=== PATIENT | male | born 1970 | race Caucasian/White ===

== ENCOUNTER 2017-09-22 17:52 | Inpatient (IN) | payer MEDICAID, OTHER ==
[~2017-09-22] VITALS: Ht 172.7 cm; Wt 68.0 kg
[~2017-09-22 17:52] MED LIST: DIVA500T35 PO
[2017-09-22 19:08] LABS: BASOPHILS % (AUTO) 0.7 % (0.0-2.0); EOSINOPHILS % (AUTO) 1.4 % (1.0-6.0); HEMATOCRIT 38.6 % (41-53); HEMOGLOBIN 13.6 g/dL (13.5-17.5); LYMPHOCYTES # (AUTO) 2.6 K/uL (1.0-4.8); LYMPHOCYTES % (AUTO) 19.1 % (22.0-44.0); MEAN CORPUSCULAR HEMOGLOBIN 32.1 pg (26.0-34.0); MEAN CORPUSCULAR HGB CONC 35.2 G/dL (31.0-37.0); MEAN CORPUSCULAR VOLUME 91 fL (80-100); MONOCYTES # (AUTO) 1.8 K/uL (0.1-1.0); MONOCYTES % (AUTO) 13.2 % (2.0-9.0); NEUTROPHILS # (AUTO) 8.9 K/uL (1.8-7.7); NEUTROPHILS % (AUTO) 65.6 % (40.0-70.0); PLATELET COUNT (AUTO) 141 K/uL (150-450); RED BLOOD CELL COUNT(AUTO) 4.23 MIL/uL (4.50-5.90); RED CELL DISTRIBUTION WIDTH 14.1 % (11.5-14.5)
[2017-09-22 19:11] LABS: ANION GAP 12 mmol/L (8-16); CALCIUM, TOTAL 9.3 mg/dL (8.8-10.5); CARBON DIOXIDE 26 mmol/L (22-29); CHLORIDE 102 mmol/L (98-107); CREATININE 1.34 mg/dL (0.60-1.30); GLOMERULAR FILTR. RATE CALC 57 mL/min (>60); GLUCOSE,RANDOM 86 mg/dL (70-110); POTASSIUM 4.8 mmol/L (3.5-5.1); SODIUM SERUM 140 mmol/L (136-145); UREA NITROGEN, BLOOD 27 mg/dL (7-18)
[2017-09-22 19:17] LABS: ALANINE AMINOTRANSFERASE 25 U/L (12-78); ALBUMIN 4.4 g/dL (3.4-5.0); ALKALINE PHOSPHATASE 56 U/L (46-116); ASPARTATE AMINOTRANSFERASE 34 U/L (15-37); BILIRUBIN,TOTAL 0.6 mg/dL (0.1-1.0)
[2017-09-22 19:41] LABS: PLATELET MORPHOLOGY COMMENT GIANT PLTS PRESENT
[2017-09-22 20:03] LABS: AMPHET/METH SCREEN,URINE NEGATIVE (NEGATIVE); BARBITURATE SCREEN, URINE NEGATIVE (NEGATIVE); BENZODIAZEPINES SCREEN,URINE NEGATIVE (NEGATIVE); CANNABINOID SCREEN,URINE POSITIVE (NEGATIVE); COCAINE SCREEN,URINE NEGATIVE (NEGATIVE); METHADONE SCREEN, URINE NEGATIVE (NEGATIVE); OPIATE SCREEN,URINE POSITIVE (NEGATIVE)
[2017-09-22 20:04] LABS: PHENCYCLIDINE SCREEN,URINE NEGATIVE (NEGATIVE)
[2017-09-22 20:30] LABS: VALPROIC ACID 51 mcg/mL (50-100)
[2017-09-22 20:45] LABS: APPEARANCE,URINE CLEAR (CLEAR); BILIRUBIN,URINE NEGATIVE (NEGATIVE); GLUCOSE, URINE (UA) NEGATIVE (NEGATIVE); KETONES,URINE TRACE mg/dL (NEGATIVE); LEUKOCYTE ESTERASE ,URINE NEGATIVE (NEGATIVE); NITRATE,URINE NEGATIVE (NEGATIVE); OCCULT BLOOD,URINE TRACE (NEGATIVE); PROTEIN,URINE POS 1+ (NEGATIVE); UROBILINOGEN,URINE 0.2 mg/dL (<=1.0)
[2017-09-22 20:53] LABS: BACTERIA,URINE Rare /HPF (None Seen); RBC,URINE 0-2 /HPF (0-2); SQUAMOUS EPITHELIAL CELL,UR Few /LPF (None Seen); WBC,URINE 0-2 /HPF (0-5)
[2017-09-23] MEDS: ZOLPIDEM TARTRATE 10 MG TABLET PO PRN (00:01)
[2017-09-23 08:05] LABS: CHOL/HDL RATIO 4.5 (4.2-7.3); FREE T4 (FREE THYROXINE) 0.88 ng/dL (0.76-1.46); THYROID STIMULATING HORMONE 1.59 uIU/mL (0.36-3.74)
[2017-09-23] MEDS: DIVALPROEX SODIUM 500 MG DR TABLET PO SCH ×5 (09:00→21:23)
[2017-09-23] MEDS ORDERED: HALOPERIDOL LACTATE 5 MG/ML VIAL ONE (12:52)
[2017-09-23] MEDS ORDERED: LORazepam 2 MG/ML VIAL ONE (12:52)
[2017-09-23] MEDS ORDERED: HALOPERIDOL LACTATE 5 MG/ML VIAL IM ONE (12:53)
[2017-09-23] MEDS ORDERED: LORazepam 2 MG/ML VIAL IM ONE (13:00)
[2017-09-24] MEDS ORDERED: LevETIRAcetam 500 MG TABLET PO ONE (08:30)
[2017-09-24] MEDS: DIVALPROEX SODIUM 500 MG DR TABLET PO SCH ×3 (08:39→16:28)
[2017-09-24] MEDS: LORazepam 2 MG TABLET PO PRN (08:39)
[2017-09-24] MEDS: HALOPERIDOL 5 MG TABLET PO PRN (09:17)
[2017-09-24 09:45] VITALS: BP 128/78
[2017-09-24] MEDS: LevETIRAcetam 500 MG TABLET PO SCH (16:28)
[2017-09-24 17:54] VITALS: BP 122/75
[2017-09-24] MEDS: ZOLPIDEM TARTRATE 10 MG TABLET PO PRN (20:20)
[2017-09-25] MEDS: LevETIRAcetam 500 MG TABLET PO SCH ×2 (08:23→17:05)
[2017-09-25] MEDS: LORazepam 2 MG TABLET PO PRN ×2 (08:23→13:06)
[2017-09-25] MEDS: DIVALPROEX SODIUM 500 MG DR TABLET PO SCH ×3 (08:23→17:05)
[2017-09-25] MEDS: HALOPERIDOL 5 MG TABLET PO PRN (08:43)
[2017-09-25 16:00] VITALS: BP 132/70
[2017-09-25] MEDS: MIRTAZAPINE 15 MG TABLET PO SCH (21:59)
[2017-09-26 01:24] LABS: APPEARANCE,URINE CLEAR (CLEAR); BILIRUBIN,URINE NEGATIVE (NEGATIVE); GLUCOSE, URINE (UA) NEGATIVE (NEGATIVE); OCCULT BLOOD,URINE NEGATIVE (NEGATIVE); PROTEIN,URINE NEGATIVE (NEGATIVE)
[2017-09-26 01:25] LABS: KETONES,URINE TRACE mg/dL (NEGATIVE); LEUKOCYTE ESTERASE ,URINE NEGATIVE (NEGATIVE); NITRATE,URINE NEGATIVE (NEGATIVE); UROBILINOGEN,URINE 0.2 mg/dL (<=1.0)
[2017-09-26 07:28] LABS: BASOPHILS % (AUTO) 1.2 % (0.0-2.0); EOSINOPHILS % (AUTO) 5.4 % (1.0-6.0); HEMATOCRIT 36.8 % (41-53); HEMOGLOBIN 12.8 g/dL (13.5-17.5); LYMPHOCYTES # (AUTO) 3.4 K/uL (1.0-4.8); LYMPHOCYTES % (AUTO) 50.3 % (22.0-44.0); MEAN CORPUSCULAR HEMOGLOBIN 31.9 pg (26.0-34.0); MEAN CORPUSCULAR HGB CONC 34.9 G/dL (31.0-37.0); MEAN CORPUSCULAR VOLUME 92 fL (80-100); MONOCYTES # (AUTO) 0.7 K/uL (0.1-1.0); MONOCYTES % (AUTO) 9.9 % (2.0-9.0); NEUTROPHILS # (AUTO) 2.2 K/uL (1.8-7.7); NEUTROPHILS % (AUTO) 33.2 % (40.0-70.0); PLATELET COUNT (AUTO) 158 K/uL (150-450); RED BLOOD CELL COUNT(AUTO) 4.02 MIL/uL (4.50-5.90)
[2017-09-26 07:30] LABS: PLATELET MORPHOLOGY COMMENT GIANT PLTS PRESENT
[2017-09-26 07:44] LABS: ALANINE AMINOTRANSFERASE 29 U/L (12-78); ALBUMIN 3.5 g/dL (3.4-5.0); ALKALINE PHOSPHATASE 51 U/L (46-116); ANION GAP 4 mmol/L (8-16); ASPARTATE AMINOTRANSFERASE 28 U/L (15-37); BILIRUBIN,TOTAL 0.5 mg/dL (0.1-1.0); CALCIUM, TOTAL 8.6 mg/dL (8.8-10.5); CARBON DIOXIDE 32 mmol/L (22-29); CHLORIDE 104 mmol/L (98-107); CREATININE 1.17 mg/dL (0.60-1.30); GLOMERULAR FILTR. RATE CALC > 60 mL/min (>60); GLUCOSE,RANDOM 79 mg/dL (70-110); POTASSIUM 4.1 mmol/L (3.5-5.1); SODIUM SERUM 140 mmol/L (136-145); TOTAL PROTEIN, SERUM 6.9 g/dL (6.4-8.2); UREA NITROGEN, BLOOD 20 mg/dL (7-18)
[2017-09-26 08:20] VITALS: BP 119/73
[2017-09-26] MEDS: HALOPERIDOL 5 MG TABLET PO PRN ×2 (08:31→12:49)
[2017-09-26] MEDS: LORazepam 2 MG TABLET PO PRN ×2 (08:31→12:49)
[2017-09-26] MEDS: DIVALPROEX SODIUM 500 MG DR TABLET PO SCH ×3 (08:31→16:19)
[2017-09-26] MEDS: LevETIRAcetam 500 MG TABLET PO SCH ×2 (08:31→16:19)
[2017-09-26] MEDS ORDERED: ACETAMINOPHEN 325 MG TABLET PO PRN (09:00)
[2017-09-26 16:08] VITALS: BP 139/68
[2017-09-26] MEDS: MIRTAZAPINE 15 MG TABLET PO SCH (20:47)
[2017-09-27] MEDS: LevETIRAcetam 500 MG TABLET PO SCH ×2 (08:40→16:39)
[2017-09-27] MEDS: HALOPERIDOL 5 MG TABLET PO PRN (08:40)
[2017-09-27] MEDS: LORazepam 2 MG TABLET PO PRN (08:40)
[2017-09-27] MEDS: DIVALPROEX SODIUM 500 MG DR TABLET PO SCH ×3 (08:40→16:39)
[2017-09-27 16:01] VITALS: BP 128/78
[2017-09-27] MEDS: MIRTAZAPINE 15 MG TABLET PO SCH (20:27)
[2017-09-28] MEDS: DIVALPROEX SODIUM 500 MG DR TABLET PO SCH ×3 (09:00→17:57)
[2017-09-28] MEDS: LevETIRAcetam 500 MG TABLET PO SCH ×2 (09:00→17:57)
[2017-09-28] MEDS: HALOPERIDOL 5 MG TABLET PO PRN (11:25)
[2017-09-28] MEDS: LORazepam 2 MG TABLET PO PRN (11:25)
[2017-09-28 16:00] VITALS: BP 137/79
[2017-09-28] MEDS: MIRTAZAPINE 15 MG TABLET PO SCH (22:13)
[2017-09-29] MEDS: DIVALPROEX SODIUM 500 MG DR TABLET PO SCH ×3 (08:16→18:01)
[2017-09-29] MEDS: LevETIRAcetam 500 MG TABLET PO SCH ×2 (08:17→18:01)
[2017-09-29] MEDS: ARIPiprazole 10 MG TABLET PO SCH (08:17)
[2017-09-29] MEDS: LORazepam 2 MG TABLET PO PRN (08:17)
[2017-09-29] MEDS: HALOPERIDOL 5 MG TABLET PO PRN (08:17)
[2017-09-29] MEDS: MIRTAZAPINE 15 MG TABLET PO SCH (22:00)
[2017-09-30] MEDS: ARIPiprazole 10 MG TABLET PO SCH (08:00)
[2017-09-30] MEDS: LevETIRAcetam 500 MG TABLET PO SCH ×2 (08:00→16:52)
[2017-09-30] MEDS: DIVALPROEX SODIUM 500 MG DR TABLET PO SCH ×3 (08:00→16:52)
[2017-09-30 16:07] VITALS: BP 114/73
[2017-09-30] MEDS: MIRTAZAPINE 15 MG TABLET PO SCH (22:06)
[2017-10-01] MEDS: ZOLPIDEM TARTRATE 10 MG TABLET PO PRN (02:00)
[2017-10-01] MEDS: ARIPiprazole 10 MG TABLET PO SCH (08:28)
[2017-10-01] MEDS: LevETIRAcetam 500 MG TABLET PO SCH ×2 (08:28→16:02)
[2017-10-01] MEDS: DIVALPROEX SODIUM 500 MG DR TABLET PO SCH ×3 (08:28→16:02)
[2017-10-01 09:20] VITALS: BP 133/93
[2017-10-01 16:50] VITALS: BP 121/85
[2017-10-01] MEDS: MIRTAZAPINE 15 MG TABLET PO SCH (20:49)
[2017-10-01 22:45] VITALS: BP 166/116
[2017-10-01 22:57] LABS: GLUCOMETER DEV NAME(LOC) 3EX 1; GLUCOSE,POINT OF CARE 108 MG/DL (70-110)
[2017-10-01 23:00] VITALS: BP 125/69
[2017-10-01 23:15] VITALS: BP 166/116
[2017-10-01 23:30] VITALS: BP 124/73
[2017-10-02 00:04] LABS: EOSINOPHILS % (AUTO) 8.8 % (1.0-6.0); HEMATOCRIT 40.5 % (41-53); HEMOGLOBIN 13.8 g/dL (13.5-17.5); LYMPHOCYTES # (AUTO) 4.7 K/uL (1.0-4.8); LYMPHOCYTES % (AUTO) 50.6 % (22.0-44.0); MEAN CORPUSCULAR HEMOGLOBIN 31.2 pg (26.0-34.0); MEAN CORPUSCULAR VOLUME 92 fL (80-100); MONOCYTES # (AUTO) 0.8 K/uL (0.1-1.0); MONOCYTES % (AUTO) 8.3 % (2.0-9.0); NEUTROPHILS # (AUTO) 2.9 K/uL (1.8-7.7); NEUTROPHILS % (AUTO) 31.3 % (40.0-70.0); PLATELET COUNT (AUTO) 168 K/uL (150-450); RED BLOOD CELL COUNT(AUTO) 4.43 MIL/uL (4.50-5.90)
[2017-10-02 00:05] VITALS: BP 128/83
[2017-10-02 00:14] LABS: ANION GAP 4 mmol/L (8-16); CALCIUM, TOTAL 9.2 mg/dL (8.8-10.5); CARBON DIOXIDE 35 mmol/L (22-29); CHLORIDE 99 mmol/L (98-107); CREATININE 1.07 mg/dL (0.60-1.30); GLOMERULAR FILTR. RATE CALC > 60 mL/min (>60); GLUCOSE,RANDOM 90 mg/dL (70-110); SODIUM SERUM 138 mmol/L (136-145); UREA NITROGEN, BLOOD 20 mg/dL (7-18)
[2017-10-02 00:20] LABS: ALANINE AMINOTRANSFERASE 23 U/L (12-78); ALBUMIN 3.9 g/dL (3.4-5.0); ALKALINE PHOSPHATASE 45 U/L (46-116); ASPARTATE AMINOTRANSFERASE 19 U/L (15-37); BILIRUBIN,TOTAL 0.3 mg/dL (0.1-1.0); TOTAL PROTEIN, SERUM 7.6 g/dL (6.4-8.2); VALPROIC ACID 101 mcg/mL (50-100)
[2017-10-02 00:30] VITALS: BP 120/80
[2017-10-02 01:32] VITALS: BP 117/79
[2017-10-02 02:33] VITALS: BP 131/83
[2017-10-02 08:25] VITALS: BP 139/93
[2017-10-02] MEDS: ARIPiprazole 10 MG TABLET PO SCH (08:28)
[2017-10-02] MEDS: DIVALPROEX SODIUM 500 MG DR TABLET PO SCH ×3 (08:28→15:59)
[2017-10-02] MEDS: LevETIRAcetam 500 MG TABLET PO SCH ×2 (08:28→15:59)
[2017-10-02] MEDS ORDERED: LevETIRAcetam 500 MG TABLET PO ONE (09:00)
[2017-10-02 11:37] LABS: GLUCOMETER DEV NAME(LOC) 3EX 1; GLUCOSE,POINT OF CARE 88 MG/DL (70-110)
[2017-10-02 17:07] VITALS: BP 133/66
[2017-10-02] MEDS: MIRTAZAPINE 15 MG TABLET PO SCH (19:52)
[2017-10-03 04:26] VITALS: BP 146/70
[2017-10-03 08:26] VITALS: BP 119/60
[2017-10-03] MEDS: ARIPiprazole 10 MG TABLET PO SCH (09:26)
[2017-10-03] MEDS: DIVALPROEX SODIUM 500 MG DR TABLET PO SCH ×3 (09:26→17:27)
[2017-10-03] MEDS: LevETIRAcetam 500 MG TABLET PO SCH ×2 (09:26→17:27)
[2017-10-03 17:03] VITALS: BP 107/78
[2017-10-03] MEDS: MIRTAZAPINE 30 MG TABLET PO SCH (21:09)
[2017-10-04 08:10] VITALS: BP 140/77
[2017-10-04] MEDS: ARIPiprazole 15 MG TABLET PO SCH (09:02)
[2017-10-04] MEDS: DIVALPROEX SODIUM 500 MG DR TABLET PO SCH ×3 (09:03→16:36)
[2017-10-04] MEDS: LevETIRAcetam 500 MG TABLET PO SCH ×2 (09:03→16:36)
[2017-10-04 11:52] LABS: GLUCOMETER DEV NAME(LOC) 3EX 1; GLUCOSE,POINT OF CARE 152 MG/DL (70-110)
[2017-10-04 17:31] VITALS: BP 128/74
[2017-10-04] MEDS: HALOPERIDOL 5 MG TABLET PO PRN (20:16)
[2017-10-04] MEDS: MIRTAZAPINE 30 MG TABLET PO SCH (20:16)
[2017-10-05] MEDS: ARIPiprazole 15 MG TABLET PO SCH (08:22)
[2017-10-05] MEDS: DIVALPROEX SODIUM 500 MG DR TABLET PO SCH ×3 (08:22→15:58)
[2017-10-05] MEDS: LevETIRAcetam 500 MG TABLET PO SCH ×2 (08:23→15:58)
[2017-10-05 09:00] VITALS: BP 135/107
[2017-10-05 10:00] VITALS: BP 141/81
[2017-10-05] MEDS: HALOPERIDOL 5 MG TABLET PO PRN ×3 (10:15→23:39)
[2017-10-05 16:33] VITALS: BP 127/72
[2017-10-05] MEDS: MIRTAZAPINE 30 MG TABLET PO SCH (21:04)
[2017-10-06] VITALS: BP 125/74
[2017-10-06] MEDS: ARIPiprazole 10 MG TABLET PO SCH (07:57)
[2017-10-06] MEDS: HALOPERIDOL 5 MG TABLET PO PRN (07:57)
[2017-10-06] MEDS: DIVALPROEX SODIUM 500 MG DR TABLET PO SCH ×3 (07:57→17:21)
[2017-10-06] MEDS: LevETIRAcetam 500 MG TABLET PO SCH ×2 (07:57→17:21)
[2017-10-06 08:00] VITALS: BP 112/69
[2017-10-06 16:03] VITALS: BP 124/76
[2017-10-06] MEDS ORDERED: LORazepam 2 MG/ML VIAL IM ONE (18:20)
[2017-10-06 18:23] LABS: GLUCOMETER DEV NAME(LOC) 3EX 1; GLUCOSE,POINT OF CARE 83 MG/DL (70-110)
[2017-10-06] MEDS: MIRTAZAPINE 30 MG TABLET PO SCH (20:36)
[2017-10-07 06:53] LABS: BASOPHILS % (AUTO) 0.8 % (0.0-2.0); EOSINOPHILS % (AUTO) 6.9 % (1.0-6.0); HEMATOCRIT 38.9 % (41-53); HEMOGLOBIN 13.5 g/dL (13.5-17.5); LYMPHOCYTES # (AUTO) 3.4 K/uL (1.0-4.8); MEAN CORPUSCULAR HEMOGLOBIN 31.8 pg (26.0-34.0); MEAN CORPUSCULAR HGB CONC 34.6 G/dL (31.0-37.0); MEAN CORPUSCULAR VOLUME 92 fL (80-100); MONOCYTES # (AUTO) 0.7 K/uL (0.1-1.0); MONOCYTES % (AUTO) 9.3 % (2.0-9.0); NEUTROPHILS # (AUTO) 2.4 K/uL (1.8-7.7); PLATELET COUNT (AUTO) 124 K/uL (150-450); RED BLOOD CELL COUNT(AUTO) 4.24 MIL/uL (4.50-5.90); RED CELL DISTRIBUTION WIDTH 13.9 % (11.5-14.5)
[2017-10-07 07:24] LABS: ALANINE AMINOTRANSFERASE 20 U/L (12-78); ALBUMIN 3.5 g/dL (3.4-5.0); ALKALINE PHOSPHATASE 41 U/L (46-116); ANION GAP 3 mmol/L (8-16); ASPARTATE AMINOTRANSFERASE 18 U/L (15-37); BILIRUBIN,TOTAL 0.3 mg/dL (0.1-1.0); CALCIUM, TOTAL 8.7 mg/dL (8.8-10.5); CARBON DIOXIDE 32 mmol/L (22-29); CHLORIDE 104 mmol/L (98-107); CREATININE 1.02 mg/dL (0.60-1.30); GLOMERULAR FILTR. RATE CALC > 60 mL/min (>60); GLUCOSE,RANDOM 77 mg/dL (70-110); POTASSIUM 4.6 mmol/L (3.5-5.1); SODIUM SERUM 139 mmol/L (136-145); TOTAL PROTEIN, SERUM 6.8 g/dL (6.4-8.2); UREA NITROGEN, BLOOD 16 mg/dL (7-18)
[2017-10-07 08:15] LABS: ERYTHROCYTE SEDIMENTATION RATE 3 MM/HR (0-15)
[2017-10-07 08:35] VITALS: BP 130/72
[2017-10-07] MEDS: LevETIRAcetam 500 MG TABLET PO SCH ×2 (08:39→16:09)
[2017-10-07] MEDS: ARIPiprazole 10 MG TABLET PO SCH (08:39)
[2017-10-07] MEDS: DIVALPROEX SODIUM 500 MG DR TABLET PO SCH ×3 (08:39→16:09)
[2017-10-07 16:07] VITALS: BP 135/78
[2017-10-07] MEDS: MIRTAZAPINE 30 MG TABLET PO SCH (20:40)
[2017-10-08] MEDS: LevETIRAcetam 500 MG TABLET PO SCH ×2 (08:12→16:28)
[2017-10-08] MEDS: DIVALPROEX SODIUM 500 MG DR TABLET PO SCH ×3 (08:12→16:28)
[2017-10-08] MEDS: ARIPiprazole 10 MG TABLET PO SCH (08:13)
[2017-10-08 08:28] VITALS: BP 141/86
[2017-10-08] MEDS: HALOPERIDOL 5 MG TABLET PO PRN (09:03)
[2017-10-08 16:46] VITALS: BP 131/62
[2017-10-08] MEDS: MIRTAZAPINE 30 MG TABLET PO SCH (20:11)
[2017-10-09] MEDS: HALOPERIDOL 5 MG TABLET PO PRN (00:28)
[2017-10-09 01:04] VITALS: BP 120/79
[2017-10-09 08:00] VITALS: BP 117/83
[2017-10-09] MEDS: ARIPiprazole 10 MG TABLET PO SCH (08:55)
[2017-10-09] MEDS: DIVALPROEX SODIUM 500 MG DR TABLET PO SCH ×3 (08:55→15:55)
[2017-10-09] MEDS: LevETIRAcetam 500 MG TABLET PO SCH ×2 (08:55→15:55)
[2017-10-09 15:10] VITALS: BP 137/92
[2017-10-09 15:15] VITALS: BP 137/92
[2017-10-09] MEDS: IBUPROFEN 600 MG TABLET PO PRN (15:55)
[2017-10-09 16:02] VITALS: BP 124/90
[2017-10-09] MEDS: MIRTAZAPINE 30 MG TABLET PO SCH (21:00)
[2017-10-10 00:15] VITALS: BP 128/97
[2017-10-10 08:10] VITALS: BP 131/99
[2017-10-10] MEDS: DIVALPROEX SODIUM 500 MG DR TABLET PO SCH ×3 (08:44→15:55)
[2017-10-10] MEDS: LORATADINE 10 MG TABLET PO SCH (08:44)
[2017-10-10] MEDS: ARIPiprazole 10 MG TABLET PO SCH (08:44)
[2017-10-10] MEDS: LevETIRAcetam 500 MG TABLET PO SCH ×2 (08:45→15:55)
[2017-10-10] MEDS: IBUPROFEN 600 MG TABLET PO PRN (16:13)
[2017-10-10 16:14] VITALS: BP 119/83
[2017-10-10] MEDS: MIRTAZAPINE 30 MG TABLET PO SCH (19:58)
[2017-10-11] VITALS: BP 144/99
[2017-10-11 07:21] LABS: ALANINE AMINOTRANSFERASE 22 U/L (12-78); ALBUMIN 3.6 g/dL (3.4-5.0); ALKALINE PHOSPHATASE 54 U/L (46-116); ANION GAP 3 mmol/L (8-16); ASPARTATE AMINOTRANSFERASE 19 U/L (15-37); BILIRUBIN,TOTAL 0.2 mg/dL (0.1-1.0); CALCIUM, TOTAL 8.9 mg/dL (8.8-10.5); CARBON DIOXIDE 33 mmol/L (22-29); CHLORIDE 103 mmol/L (98-107); CREATININE 1.04 mg/dL (0.60-1.30); GLOMERULAR FILTR. RATE CALC > 60 mL/min (>60); GLUCOSE,RANDOM 74 mg/dL (70-110); POTASSIUM 4.7 mmol/L (3.5-5.1); SODIUM SERUM 139 mmol/L (136-145); TOTAL PROTEIN, SERUM 7.3 g/dL (6.4-8.2); UREA NITROGEN, BLOOD 21 mg/dL (7-18)
[2017-10-11 08:47] LABS: APPEARANCE,URINE CLEAR (CLEAR); BILIRUBIN,URINE NEGATIVE (NEGATIVE); GLUCOSE, URINE (UA) NEGATIVE (NEGATIVE); KETONES,URINE NEGATIVE (NEGATIVE); LEUKOCYTE ESTERASE ,URINE NEGATIVE (NEGATIVE); NITRATE,URINE NEGATIVE (NEGATIVE); OCCULT BLOOD,URINE NEGATIVE (NEGATIVE); PROTEIN,URINE NEGATIVE (NEGATIVE); UROBILINOGEN,URINE 0.2 mg/dL (<=1.0)
[2017-10-11] MEDS: LevETIRAcetam 500 MG TABLET PO SCH (10:07)
[2017-10-11] MEDS: ARIPiprazole 10 MG TABLET PO SCH (10:07)
[2017-10-11] MEDS: DIVALPROEX SODIUM 500 MG DR TABLET PO SCH ×2 (10:07→13:54)
[2017-10-11] MEDS: LORATADINE 10 MG TABLET PO SCH (10:07)
[2017-10-11 10:10] VITALS: BP 201/94
[2017-10-11 10:35] LABS: GLUCOMETER DEV NAME(LOC) 3EI B; GLUCOSE,POINT OF CARE 81 MG/DL (70-110)
[2017-10-11 11:10] VITALS: BP 175/82
== END 2017-10-11 14:15 | disposition short-term general hospital (02) | DRG 751 ==
LOC: EMS 17:53 → 3EC 09-24 07:55 → 3EI 09-30 17:15
PROVIDERS: ADMIT Psychiatry & Neurology Psychiatry; ATTEND Psychiatry & Neurology Psychiatry
DX: F33.2 Major depressive disorder, recurrent severe without psychotic features (principal); R45.851 Suicidal ideations; G40.89 Other seizures; D69.6 Thrombocytopenia, unspecified; D72.829 Elevated white blood cell count, unspecified; I10 Essential (primary) hypertension; S02.2XXA Fracture of nasal bones, initial encounter for closed fracture; G20 Parkinson's disease; F41.9 Anxiety disorder, unspecified; R45.87 Impulsiveness; W19.XXXA Unspecified fall, initial encounter; Z59.0 Homelessness; Z79.899 Other long term (current) drug therapy; Z86.73 Personal history of transient ischemic attack (TIA), and cerebral infarction without residual deficits; Z87.820 Personal history of traumatic brain injury; Y93.89 Activity, other specified; Y92.89 Other specified places as the place of occurrence of the external cause; Y99.8 Other external cause status
CPT/HCPCS: 70450; 70486; 72125; 84439; 84443; 85651; 87081; 93005; 95816; 96372; 99285; G0480; G0482; J1630; J2060

== ENCOUNTER 2017-10-11 14:15 | Inpatient (IN) | payer OTHER ==
[~2017-10-11] VITALS: Ht 177.8 cm; Wt 71.0 kg
[2017-10-11 16:00] VITALS: BP 127/78
[2017-10-11] MEDS ORDERED: ALBUTEROL SULFATE 2.5 MG/0.5 ML NEB SOLUTION NEB PRN (18:15)
[2017-10-11] MEDS ORDERED: BISACODYL 10 MG RECTAL RECTAL SUPPOSITORY PR PRN (18:15)
[2017-10-11] MEDS ORDERED: MAGNESIUM HYDROXIDE SUSPENSION 30 ML UDCUP PO PRN (18:15)
[2017-10-11] MEDS ORDERED: ONDANSETRON HCL 4 MG/2 ML VIAL IVP PRN (18:15)
[2017-10-11] MEDS ORDERED: IPRATROPIUM BROMIDE 0.5 MG/2.5 ML NEB SOLUTION NEB PRN (18:15)
[2017-10-11] MEDS ORDERED: PHENYLEPHRINE HCL 1% 15 ML NASAL SPRAY NASAL PRN (18:15)
[2017-10-11] MEDS ORDERED: HEPARIN SODIUM,PORCINE 5,000 UNITS/ML VIAL SQ SCH (18:15)
[2017-10-11 18:31] VITALS: BP 136/94
[2017-10-11] MEDS ORDERED: LORazepam 2 MG/ML VIAL IVP PRN (19:30)
[2017-10-11 20:35] VITALS: BP 111/77
[2017-10-11] MEDS: MIRTAZAPINE 30 MG TABLET PO SCH (20:41)
[2017-10-11] MEDS: HEPARIN SODIUM,PORCINE 5,000 UNITS/ML VIAL SQ SCH (20:41)
[2017-10-11] MEDS: LevETIRAcetam 500 MG TABLET PO SCH (20:41)
[2017-10-11] MEDS: DIVALPROEX SODIUM 500 MG DR TABLET PO SCH (20:41)
[2017-10-12 00:14] VITALS: BP 148/90
[2017-10-12 04:19] VITALS: BP 148/75
[2017-10-12 07:15] LABS: BASOPHILS % (AUTO) 0.6 % (0.0-2.0); EOSINOPHILS % (AUTO) 4.3 % (1.0-6.0); HEMATOCRIT 39.7 % (41-53); HEMOGLOBIN 14.1 g/dL (13.5-17.5); LYMPHOCYTES # (AUTO) 3.1 K/uL (1.0-4.8); LYMPHOCYTES % (AUTO) 32.4 % (22.0-44.0); MEAN CORPUSCULAR HEMOGLOBIN 32.6 pg (26.0-34.0); MEAN CORPUSCULAR HGB CONC 35.6 G/dL (31.0-37.0); MEAN CORPUSCULAR VOLUME 91 fL (80-100); MONOCYTES # (AUTO) 0.9 K/uL (0.1-1.0); MONOCYTES % (AUTO) 9.1 % (2.0-9.0); NEUTROPHILS # (AUTO) 5.1 K/uL (1.8-7.7); NEUTROPHILS % (AUTO) 53.6 % (40.0-70.0); PLATELET COUNT (AUTO) 137 K/uL (150-450); RED BLOOD CELL COUNT(AUTO) 4.34 MIL/uL (4.50-5.90); RED CELL DISTRIBUTION WIDTH 14.3 % (11.5-14.5)
[2017-10-12 07:48] VITALS: BP 103/67
[2017-10-12 07:52] LABS: HEMOGLOBIN A1C 5.8 % (4.5-6.2)
[2017-10-12 08:04] LABS: ALANINE AMINOTRANSFERASE 21 U/L (12-78); ALBUMIN 3.7 g/dL (3.4-5.0); ALKALINE PHOSPHATASE 50 U/L (46-116); ANION GAP 6 mmol/L (8-16); ASPARTATE AMINOTRANSFERASE 19 U/L (15-37); BILIRUBIN,TOTAL 0.3 mg/dL (0.1-1.0); CARBON DIOXIDE 29 mmol/L (22-29); CHLORIDE 99 mmol/L (98-107); CHOL/HDL RATIO 3.9 (4.2-7.3); CHOLESTEROL 196 mg/dL (131-200); CREATINE KINASE MB 1.8 ng/mL (0-5); CREATINE KINASE, TOTAL 93 U/L (39-308); CREATININE 0.96 mg/dL (0.60-1.30); GLOMERULAR FILTR. RATE CALC > 60 mL/min (>60); GLUCOSE,RANDOM 79 mg/dL (70-110); HDL CHOLESTEROL 50 mg/dL (40-60); LDL CHOL (CALC.) 124 mg/dL (0-130); POTASSIUM 4.1 mmol/L (3.5-5.1); SODIUM SERUM 134 mmol/L (136-145); TOTAL PROTEIN, SERUM 7.6 g/dL (6.4-8.2); TRIGLYCERIDES 110 mg/dL (15-150); UREA NITROGEN, BLOOD 16 mg/dL (7-18); URIC ACID 4.6 mg/dL (2.6-7.2)
[2017-10-12 08:29] LABS: THYROID STIMULATING HORMONE 3.66 uIU/mL (0.36-3.74)
[2017-10-12 10:51] LABS: FOLATE SERUM 8.9 ng/mL (5.4-)
[2017-10-12 11:05] VITALS: BP 125/78
[2017-10-12] MEDS: DIVALPROEX SODIUM 500 MG DR TABLET PO SCH ×2 (11:06→21:06)
[2017-10-12] MEDS: LevETIRAcetam 500 MG TABLET PO SCH ×2 (11:06→21:06)
[2017-10-12] MEDS: PANTOPRAZOLE SODIUM 40 MG DR TABLET PO SCH (11:06)
[2017-10-12] MEDS: LORATADINE 10 MG TABLET PO SCH (11:07)
[2017-10-12] MEDS: HEPARIN SODIUM,PORCINE 5,000 UNITS/ML VIAL SQ SCH ×2 (11:07→21:06)
[2017-10-12] MEDS: ARIPiprazole 10 MG TABLET PO SCH (11:08)
[2017-10-12 15:12] VITALS: BP 138/88
[2017-10-12] MEDS: ASPIRIN 81 MG EC TABLET PO SCH (16:39)
[2017-10-12] MEDS: METOPROLOL TARTRATE 25 MG TABLET PO SCH ×2 (16:39→23:00)
[2017-10-12 19:57] VITALS: BP 95/63
[2017-10-12] MEDS ORDERED: METOPROLOL TARTRATE 25 MG TABLET PO SCH (21:00)
[2017-10-12] MEDS ORDERED: MIRTAZAPINE 30 MG TABLET PO SCH (21:00)
[2017-10-12] MEDS: MIRTAZAPINE 30 MG TABLET PO SCH (21:06)
[2017-10-13 00:05] VITALS: BP 96/65
[2017-10-13 03:21] VITALS: BP 97/68
[2017-10-13 07:55] VITALS: BP 133/75
[2017-10-13 08:10] LABS: BASOPHILS % (AUTO) 0.4 % (0.0-2.0); HEMATOCRIT 40.4 % (41-53); LYMPHOCYTES # (AUTO) 3.7 K/uL (1.0-4.8); LYMPHOCYTES % (AUTO) 35.1 % (22.0-44.0); MEAN CORPUSCULAR HEMOGLOBIN 31.9 pg (26.0-34.0); MEAN CORPUSCULAR HGB CONC 34.7 G/dL (31.0-37.0); MEAN CORPUSCULAR VOLUME 92 fL (80-100); MONOCYTES # (AUTO) 0.9 K/uL (0.1-1.0); MONOCYTES % (AUTO) 8.5 % (2.0-9.0); NEUTROPHILS # (AUTO) 5.2 K/uL (1.8-7.7); PLATELET COUNT (AUTO) 150 K/uL (150-450); RED BLOOD CELL COUNT(AUTO) 4.39 MIL/uL (4.50-5.90); RED CELL DISTRIBUTION WIDTH 14.2 % (11.5-14.5)
[2017-10-13 08:11] LABS: INR 0.9 (0.9-1.1); PROTHROMBIN TIME 9.9 SEC (9.4-11.6)
[2017-10-13] MEDS: LORATADINE 10 MG TABLET PO SCH (08:15)
[2017-10-13] MEDS: DIVALPROEX SODIUM 500 MG DR TABLET PO SCH ×2 (08:15→20:55)
[2017-10-13] MEDS: ASPIRIN 81 MG EC TABLET PO SCH (08:15)
[2017-10-13] MEDS: PANTOPRAZOLE SODIUM 40 MG DR TABLET PO SCH (08:15)
[2017-10-13] MEDS: HEPARIN SODIUM,PORCINE 5,000 UNITS/ML VIAL SQ SCH ×2 (08:15→20:56)
[2017-10-13] MEDS: LevETIRAcetam 500 MG TABLET PO SCH ×2 (08:15→20:55)
[2017-10-13 08:16] LABS: ANION GAP 4 mmol/L (8-16); CALCIUM, TOTAL 8.9 mg/dL (8.8-10.5); CARBON DIOXIDE 32 mmol/L (22-29); CHLORIDE 99 mmol/L (98-107); CREATININE 0.99 mg/dL (0.60-1.30); GLOMERULAR FILTR. RATE CALC > 60 mL/min (>60); GLUCOSE,RANDOM 69 mg/dL (70-110); POTASSIUM 4.2 mmol/L (3.5-5.1); SODIUM SERUM 135 mmol/L (136-145); UREA NITROGEN, BLOOD 21 mg/dL (7-18); VALPROIC ACID 113 mcg/mL (50-100)
[2017-10-13] MEDS: METOPROLOL TARTRATE 25 MG TABLET PO SCH ×3 (08:16→21:57)
[2017-10-13] MEDS ORDERED: ARIPiprazole 10 MG TABLET PO SCH (09:00)
[2017-10-13] MEDS ORDERED: ASPIRIN 81 MG EC TABLET PO SCH (09:00)
[2017-10-13 09:10] LABS: HIV 1-2 SCREEN 4TH GEN W/RFLX Non Reactive (Non Reactive)
[2017-10-13] MEDS: ARIPiprazole 10 MG TABLET PO SCH (10:18)
[2017-10-13 11:56] VITALS: BP 96/75
[2017-10-13 15:20] VITALS: BP 104/57
[2017-10-13 19:57] VITALS: BP 102/72
[2017-10-13] MEDS: MIRTAZAPINE 30 MG TABLET PO SCH (21:56)
[2017-10-14 00:03] VITALS: BP 92/67
[2017-10-14 05:36] VITALS: BP 99/75
[2017-10-14 08:00] VITALS: BP 91/67
[2017-10-14] MEDS: ASPIRIN 81 MG EC TABLET PO SCH (08:06)
[2017-10-14] MEDS: ARIPiprazole 10 MG TABLET PO SCH (08:06)
[2017-10-14] MEDS: LevETIRAcetam 500 MG TABLET PO SCH ×2 (08:06→21:22)
[2017-10-14] MEDS: LORATADINE 10 MG TABLET PO SCH (08:06)
[2017-10-14] MEDS: HEPARIN SODIUM,PORCINE 5,000 UNITS/ML VIAL SQ SCH ×2 (08:07→21:30)
[2017-10-14] MEDS: METOPROLOL TARTRATE 25 MG TABLET PO SCH ×2 (08:07→21:23)
[2017-10-14] MEDS: PANTOPRAZOLE SODIUM 40 MG DR TABLET PO SCH (08:07)
[2017-10-14] MEDS: DIVALPROEX SODIUM 500 MG DR TABLET PO SCH ×2 (08:07→21:22)
[2017-10-14 09:14] LABS: BASOPHILS % (AUTO) 0.7 % (0.0-2.0); EOSINOPHILS % (AUTO) 10.3 % (1.0-6.0); HEMATOCRIT 39.4 % (41-53); HEMOGLOBIN 13.7 g/dL (13.5-17.5); LYMPHOCYTES % (AUTO) 40.8 % (22.0-44.0); MEAN CORPUSCULAR HEMOGLOBIN 31.8 pg (26.0-34.0); MEAN CORPUSCULAR HGB CONC 34.7 G/dL (31.0-37.0); MEAN CORPUSCULAR VOLUME 92 fL (80-100); MONOCYTES # (AUTO) 0.6 K/uL (0.1-1.0); MONOCYTES % (AUTO) 7.4 % (2.0-9.0); NEUTROPHILS % (AUTO) 40.8 % (40.0-70.0); PLATELET COUNT (AUTO) 140 K/uL (150-450); RED CELL DISTRIBUTION WIDTH 14.5 % (11.5-14.5)
[2017-10-14 09:29] LABS: ANION GAP 2 mmol/L (8-16); CALCIUM, TOTAL 8.8 mg/dL (8.8-10.5); CARBON DIOXIDE 33 mmol/L (22-29); CHLORIDE 100 mmol/L (98-107); CREATININE 1.04 mg/dL (0.60-1.30); GLOMERULAR FILTR. RATE CALC > 60 mL/min (>60); GLUCOSE,RANDOM 77 mg/dL (70-110); POTASSIUM 4.6 mmol/L (3.5-5.1); SODIUM SERUM 135 mmol/L (136-145); UREA NITROGEN, BLOOD 20 mg/dL (7-18)
[2017-10-14 11:47] VITALS: BP 101/73
[2017-10-14 15:33] VITALS: BP 103/70
[2017-10-14 20:27] VITALS: BP 152/66
[2017-10-14] MEDS: MIRTAZAPINE 30 MG TABLET PO SCH (21:23)
[2017-10-15 00:07] VITALS: BP 96/70
[2017-10-15 04:27] VITALS: BP 109/70
[2017-10-15 07:21] LABS: BASOPHILS % (AUTO) 0.9 % (0.0-2.0); EOSINOPHILS % (AUTO) 11.8 % (1.0-6.0); HEMATOCRIT 37.3 % (41-53); LYMPHOCYTES # (AUTO) 3.3 K/uL (1.0-4.8); LYMPHOCYTES % (AUTO) 47.4 % (22.0-44.0); MEAN CORPUSCULAR HEMOGLOBIN 31.7 pg (26.0-34.0); MEAN CORPUSCULAR HGB CONC 34.7 G/dL (31.0-37.0); MEAN CORPUSCULAR VOLUME 91 fL (80-100); MONOCYTES # (AUTO) 0.8 K/uL (0.1-1.0); MONOCYTES % (AUTO) 11.4 % (2.0-9.0); NEUTROPHILS % (AUTO) 28.5 % (40.0-70.0); PLATELET COUNT (AUTO) 145 K/uL (150-450); RED BLOOD CELL COUNT(AUTO) 4.09 MIL/uL (4.50-5.90)
[2017-10-15 07:45] VITALS: BP 115/82
[2017-10-15 07:56] LABS: ALANINE AMINOTRANSFERASE 17 U/L (12-78); ALBUMIN 3.5 g/dL (3.4-5.0); ALKALINE PHOSPHATASE 43 U/L (46-116); ANION GAP 7 mmol/L (8-16); ASPARTATE AMINOTRANSFERASE 19 U/L (15-37); BILIRUBIN,TOTAL 0.2 mg/dL (0.1-1.0); CALCIUM, TOTAL 8.8 mg/dL (8.8-10.5); CARBON DIOXIDE 30 mmol/L (22-29); CHLORIDE 99 mmol/L (98-107); CREATININE 0.97 mg/dL (0.60-1.30); GLOMERULAR FILTR. RATE CALC > 60 mL/min (>60); GLUCOSE,RANDOM 77 mg/dL (70-110); POTASSIUM 4.7 mmol/L (3.5-5.1); SODIUM SERUM 136 mmol/L (136-145); TOTAL PROTEIN, SERUM 7.1 g/dL (6.4-8.2); UREA NITROGEN, BLOOD 18 mg/dL (7-18)
[2017-10-15] MEDS: LevETIRAcetam 500 MG TABLET PO SCH (08:52)
[2017-10-15] MEDS: METOPROLOL TARTRATE 25 MG TABLET PO SCH (08:53)
[2017-10-15] MEDS: PANTOPRAZOLE SODIUM 40 MG DR TABLET PO SCH (08:53)
[2017-10-15] MEDS: HEPARIN SODIUM,PORCINE 5,000 UNITS/ML VIAL SQ SCH (08:53)
[2017-10-15] MEDS: ASPIRIN 81 MG EC TABLET PO SCH (08:53)
[2017-10-15] MEDS: LORATADINE 10 MG TABLET PO SCH (08:54)
[2017-10-15] MEDS: ARIPiprazole 10 MG TABLET PO SCH (08:54)
[2017-10-15] MEDS: DIVALPROEX SODIUM 500 MG DR TABLET PO SCH (08:54)
[2017-10-15 11:30] VITALS: BP 129/80
[2017-10-15] MEDS ORDERED: ARIP10TA8 PO (15:29)
[2017-10-15] MEDS ORDERED: LORA10TA7 PO (15:29)
[2017-10-15] MEDS ORDERED: ASPI81 PO (15:29)
[2017-10-15] MEDS ORDERED: VALP250 PO (15:29)
[2017-10-15] MEDS ORDERED: METO25 PO (15:30)
[2017-10-15] MEDS ORDERED: MIRT30 PO (15:30)
[2017-10-15] MEDS ORDERED: LEVE500T53 PO (15:30)
[2017-10-15] MEDS ORDERED: PANT40TA25 PO (15:31)
[2017-10-15] MEDS ORDERED: DIVA500T35 PO (15:32)
[2017-10-15 15:42] VITALS: BP 129/78
== END 2017-10-15 18:00 | disposition home or self-care (01) | DRG 53 ==
LOC: 5N 14:15 → 5S 23:00
PROVIDERS: ADMIT Internal Medicine Geriatric Medicine; ATTEND Internal Medicine Geriatric Medicine
DX: G40.909 Epilepsy, unspecified, not intractable, without status epilepticus (principal); D69.6 Thrombocytopenia, unspecified; R45.851 Suicidal ideations; F33.2 Major depressive disorder, recurrent severe without psychotic features; G20 Parkinson's disease; I48.92 Unspecified atrial flutter; F41.9 Anxiety disorder, unspecified; F17.210 Nicotine dependence, cigarettes, uncomplicated; R26.9 Unspecified abnormalities of gait and mobility; R79.89 Other specified abnormal findings of blood chemistry; X58.XXXA Exposure to other specified factors, initial encounter; S02.2XXA Fracture of nasal bones, initial encounter for closed fracture; D64.9 Anemia, unspecified; I10 Essential (primary) hypertension; Z79.899 Other long term (current) drug therapy; Z59.0 Homelessness; Z87.820 Personal history of traumatic brain injury; Y93.89 Activity, other specified; Y92.89 Other specified places as the place of occurrence of the external cause; Y99.8 Other external cause status
CPT/HCPCS: 80074; 82306; 82607; 82746; 83036; 83735; 84439; 84443; 84550; 86592; 87081; 87389; 93005; 93306; 97162; 97166; 97535; J1644; J2060